=== PATIENT | female | born 1960 | race Caucasian/White ===

== ENCOUNTER 2017-09-29 16:48 | Inpatient (IN) | payer BC ==
[~2017-09-29] VITALS: Ht 172.7 cm; Wt 136.1 kg
[~2017-09-29 16:48] MED LIST: DARVOCET-N 1001 EACH PO; FLEXERIL PO; IBUPROFEN 800800 MG PO; MEDROLDOSEPACK PO; XANAX1 MG PO; [UNRECOGNIZED DRUG - REMARK]
[2017-09-29 17:02] VITALS: BP 148/71
[2017-09-29] MEDS ORDERED: AMBIEN 5 MG TABL5 M1 PO (17:04)
[2017-09-29] MEDS ORDERED: MAXALT MLT ODT10 M1 PO (17:04)
[2017-09-29] MEDS ORDERED: OTEZLA30 MG PO (17:04)
[2017-09-29] MEDS ORDERED: LYRICA 75 MG CA75 MG PO (17:04)
[2017-09-29] MEDS ORDERED: DIFLUCAN200 MG PO (17:04)
[2017-09-29] MEDS ORDERED: LAMICTAL100 MG PO (17:05)
[2017-09-29] MEDS ORDERED: GLUCOTROL5 MG PO (17:05)
[2017-09-29] MEDS ORDERED: VITAMIN D2000 UNIT PO (17:05)
[2017-09-29] MEDS ORDERED: CLONAZEPAM 0.50.5 M1 PO (17:05)
[2017-09-29 17:12] LABS: URINE BLOOD 3+ (Negative); URINE CLARITY CLOUDY; URINE COLOR YELLOW; URINE GLUCOSE-RANDOM NEGATIVE (Negative); URINE KETONES NEGATIVE (Negative); URINE LEUKOCYTES-REFLEX NEGATIVE (Negative); URINE NITRITE-REFLEX NEGATIVE (Negative); URINE PROTEIN 2+ (Negative); URINE SPECIFIC GRAVITY >= 1.030 (1.005-1.030)
[2017-09-29 17:14] LABS: ICTOTEST (BILI CONFIRMATORY) Negative (Negative); URINE BILIRUBIN 1+ (Negative)
[2017-09-29 17:15] LABS: MUCUS 0-3 Light strn/LPF (None Seen); SQUAMOUS >10 Many /LPF (0-3)
[2017-09-29 17:16] LABS: CRYSTALS None Seen /LPF (None Seen); URINE RBC >20 Many /HPF (0-2); URINE WBC-REFLEX 6-15 Few /HPF (0-5)
[2017-09-29 17:17] LABS: ABSOLUTE BASOPHILS 0.2 thou/uL (0.0-0.2); ABSOLUTE EOSINOPHILS 0.2 thou/uL (0.0-0.7); ABSOLUTE LYMPHOCYTES 2.7 thou/uL (0.8-5.3); ABSOLUTE NEUTROPHILS 12.2 thou/uL (1.6-8.1); BASOPHILS 1.4 %; EOSINOPHILS 1.1 %; HEMATOCRIT 42.9 % (37.0-47.0); HEMOGLOBIN 14.3 gm/dL (12.0-15.0); LYMPHOCYTES 16.5 %; MCH 27.9 pg (26.0-34.0); MCHC 33.4 g/dL (28.0-37.0); MCV 83.5 fL (80.0-100.0); MONOCYTES 5.9 %; MPV 8.9 fl. (7.2-11.1); NUCLEATED RBCS 0 /100WBC; PLATELET COUNT* 240 thou/uL (150-400); POLYS 75.1 %; RBC 5.14 mil/uL (4.20-5.00); RDW-CV 14.6 % (10.5-14.5); WBC 16.2 thou/uL (4.0-11.0)
[2017-09-29 17:17] LABS: HYALINE CASTS 0-3 Few /LPF (None Seen)
[2017-09-29 17:24] LABS: CALCIUM 9.4 mg/dL (8.5-10.1); CREATININE 0.9 mg/dL (0.6-1.3); POTASSIUM 4.1 mmol/L (3.5-5.1)
[2017-09-29 17:29] LABS: ALBUMIN 3.4 g/dL (3.4-5.0); TOTAL BILIRUBIN 0.4 mg/dL (<0.1-1.0); TOTAL PROTEIN 7.1 g/dL (6.4-8.2)
[2017-09-29 20:23] VITALS: BP 135/57
[2017-09-29 22:48] VITALS: BP 143/77
[2017-09-30] VITALS (7 sets, daily range): BP systolic 136–145; BP diastolic 72–91
[2017-10-01 03:42] VITALS: BP 104/56
[2017-10-01 08:30] VITALS: BP 125/62
--- NOTE | 2017-10-01 09:45 | EKG ---
[place] [address] ELECTROCARDIOGRAM REPORT Name: BOY LEVY Room: [address] ADM IN .R.#: [id number] Admission: 09/29/17 Attend Phys: Oniel Gallardo MD Discharge: Date of : 62 Report #: [id number] THIS REPORT FOR: //name// [facility] Test Date: 2017-09-30 Test Time: 12:24:10 Pat Name: BOY LEVY Department: Room: [address] Gender: F Access Services Representative: : 1960 Requested By: Eamon Crane Order Number: [id number] Trevon MD: Lobo Flores Measurements Intervals [place] Rate: 83 P: 30 MN: 165 QRS: 60 QRSD: 90 T: 49 QT: 394 QTc: 463 Interpretive Statements Sinus rhythm Low voltage, precordial leads Compared to ECG 10/11/2016 13:03:51 No significant changes Electronically Signed On 10-01-2017 9:45:16 CDT by Lobo Flores [email or web address] <ELECTRONICALLY SIGNED> By: Lobo Flores MD, [facility] 10/01/17 0945 1224 1224 Lobo Flores MD, [facility] /EPI
[2017-10-01] MEDS ORDERED: CEFUROXIME500 MG PO (09:59)
[2017-10-01] MEDS ORDERED: LEVSIN0.125 MG PO (10:00)
[2017-10-01 10:17] VITALS: BP 125/62
[2017-10-01 10:30] VITALS: BP 125/62
[2017-10-01 11:33] VITALS: BP 125/62
--- NOTE | 2017-10-03 14:08 | PATH ---
[facility] [address] [place] [address] PATHOLOGY RPT PROCEDURE Name: MINDA CARBONE Room: [address] IN M.R.#: [id number] Admission: 09/29/17 Date of : 62 Discharge: 10/01/17 Report #: [id number] Path Case #: [id number] [facility] Accession Number: [id number] . 01 Material submitted: . BLADDER BIOPSY . 01 Clinical history: . Right ureteral stone . 02 Diagnosis: BLADDER BIOPSY: - NON-INVASIVE PAPILLARY UROTHELIAL CARCINOMA, LOW GRADE. - CHRONIC CYSTITIS. SEE COMMENT. LBQ/10/02/2017 . 02 Comment: Minimal smooth muscle is present favored to represent muscularis mucosa. Reviewed with Dr. Lnae Yang who agrees with the diagnosis. (JUDIT/pradeep; 10/02/2017) . 02 Electronically signed: . Zaki Rai MD, Pathologist NPI- [id number] . 01 Gross description: . Received in formalin labeled "Minda Carbone, bladder biopsy," is a segment of saunders soft tissue weighing less than 1 g and measuring 0.4 cm in maximum dimension. The specimen is submitted entirely in cassette A1. ([facility]; 10/01/2017) XDC/XDC . 02 Pathologist provided ICD-10: C67.9 . 02 CPT . 543161 Performed at: [address], [place] [id number] MD Alonso Milan MD Phone: [phone] Performed at: 02 [facility] [address], [place], [place] [id number] MD Zaki Rai MD Phone: [phone]
[2017-10-07 17:13] LABS: STONE CA OXALATE DIHYDRATE 35 % (()); STONE CA OXALATE MONOHYDRATE 60 % (()); STONE COLOR Brown (()); STONE COMMENT Note: (()); STONE WEIGHT 47.9 mg (())
--- NOTE | 2017-10-21 13:18 | OP ---
[facility] [address] [place] [address] OPERATIVE REPORT Name: BOY LEVY Room: [address]R.#: [id number] Admission: 09/29/17 Attend Phys: Oniel Gallardo MD Discharge: 10/01/17 Date of : 62 Report #: [id number] THIS REPORT FOR: //name// CC: Oniel Anthony Salisbury DATE OF SERVICE: 09/30/2017 DATE OF PROCEDURE: 09/30/2017. PREOPERATIVE DIAGNOSIS: Right proximal ureteral calculus. POSTOPERATIVE DIAGNOSES: 1. Right distal ureteral calculus. 2. Bladder tumor. PROCEDURES PERFORMED: 1. Cystoscopy with right retrograde pyelogram. 2. Right ureteroscopy with laser lithotripsy. 3. Stone retrieval. 4. Right 6 x 26 double-J ureteral stent placement. 5. Bladder biopsy. SURGEON: Eamon Crane M.D. ANESTHESIA: General endotracheal. BRIEF HISTORY: The patient is a 57-year-old female with a history of nephrolithiasis, who presented to [facility] with acute onset right-sided flank pain. CT imaging demonstrated the presence of a 7 mm right proximal ureteral calculus. The patient was admitted to the hospital, but her pain control was suboptimal. After discussion of the available management options, the patient elected cystoscopy with right retrograde pyelogram, right ureteroscopy with laser lithotripsy, stone retrieval and right ureteral stent placement. The risks of the procedure including the risks of bleeding, infection, damage to surrounding structures, need for additional procedures and anesthetic risks were discussed with the patient and she wished to proceed. PROCEDURE IN DETAIL: The risks and benefits of the surgery were discussed with the patient and she wished to proceed. Informed consent was obtained and the patient was transferred to the operating room, where she was laid supine on the operating room table. After the induction of adequate general endotracheal anesthesia, the patient's legs were placed in a modified dorsal lithotomy position, taking care to pad all pressure points and avoid any hyperextension or hyperflexion of her joints. The patient's genitalia were prepped and draped in usual sterile fashion. The patient previously received [place] [address] OPERATIVE REPORT Name: MILDRED,BOY Demetrius Room: [address]#: [id number] Admission: 09/29/17 Attend Phys: Oniel Gallardo MD Discharge: 10/01/17 Date of : 62 Report #: [id number] timeout was then performed to ensure correct patient and procedure. At this time, a 22-Cypriot cystoscope sheath with a 30-degree lens was lubricated and advanced under direct vision and irrigation through the urethra and into the bladder. The cystoscope was disarticulated and the bladder was drained. Cystoscopy was then performed under direct vision and irrigation with both a 30-degree and 70-degree lens. The patient's ureteral orifices were found to be in their normal anatomic location. Systematic panendoscopy revealed a small papillary appearing bladder tumor at the base of the bladder, just superior to the trigone in the midline. There were otherwise no suspicious mucosal lesions. Given the presence of an obstructing stone, the decision was made to proceed with ureteroscopic management. An attempt was made at advancing a 5-Cypriot Pollack catheter into the right ureteral orifice, but the UO was somewhat atretic and as such, a wire was advanced through the Pollack catheter and into the ureter. Fluoroscopic imaging demonstrated the presence of a radiopacity in the right hemipelvis. With advancement of the wire, there was resistance there, consistent with movement of her stone from the right proximal ureter to the right distal ureter. Using the Pollack catheter as a scaffolding, the wire was able to be advanced beyond the stone until it was seen to coil within the right collecting system under fluoroscopy. The Pollack catheter was then advanced into the right distal ureter and the wire was removed. A right retrograde pyelogram was performed and contrast could be seen filling the distal ureter at a distance of approximately 1-2 cm, at which point, the radiopaque calculus was seen. Contrast did progress beyond the stone and filled a [id number]-glgddlfwia ectatic mid and proximal ureter. The wire was replaced through the Pollack catheter up into the right collecting system under fluoroscopy. The Pollack catheter and cystoscope were removed leaving the wire in place as a safety wire. At this time, a rigid ureteroscope was advanced under direct vision and pressure flow irrigation without difficulty into the distal ureter. The patient's stone was encountered. A 200-micron laser fiber was advanced through the ureteroscope and laser lithotripsy was performed on the calculus, fragmenting it into multiple smaller pieces. The stone fragments generated during the procedure were grasped and removed with a 0 tip nitinol basket. Once all basketable stone fragments have been removed from the distal ureter, the ureteroscope was advanced to the proximal ureter and was withdrawn. There were no additional basketable stone fragments identified. The patient was found to have a few small non-obstructing right renal stones and so the decision was made to try to attempt flexible ureteroscope advancement to the kidney for retrieval. A second wire was placed through the rigid ureteroscope and the rigid ureteroscope was removed. A flexible ureteroscope was then advanced over this working wire and an attempt was made at advancing it into the ureter. The flexible ureteroscope tip was not tapered and was relatively blunt. It would not advance into the ureter. Given the above, the decision was made to cease further attempts at retrieval of the renal calculi. The flexible ureteroscope was withdrawn and the Pollack catheter was advanced over the working wire into the ureter. The working wire [place] [address] OPERATIVE REPORT Name: BOY LEVY Room: [address]#: [id number] Admission: 09/29/17 Attend Phys: Oniel Gallardo MD Discharge: 10/01/17 Date of : 62 Report #: [id number] repeat pyelogram was performed. This demonstrated patency and integrity of the ureter and collecting system and delineated the collecting system for stent placement. A 6 x 26 double-J ureteral stent was then advanced over the safety wire and into position. The wire was withdrawn, deploying the stent. A good coil of the stent was identified within the right renal pelvis under fluoroscopy and a good coil of the stent was identified within the bladder under direct vision with the cystoscope. At this time, attention was paid to the small bladder tumor of the base of the bladder, just superior to the trigone in the midline. A flexible biopsy grasper was advanced through the cystoscope and the lesion was biopsied and removed in its entirety with one bite. This was passed off the table in a separate specimen container for pathologic analysis. The biopsy site was fulgurated with a Bugbee electrode to obtain hemostasis. The calculus fragments which had been dropped into the bladder were evacuated out through the cystoscope and were also passed off the table in a separate specimen container for stone analysis. The patient's bladder was copiously irrigated and the cystoscope was removed. The patient's urethra was anesthetized with 2% lidocaine jelly. She was returned to a supine position, awakened from anesthesia and transferred to the Postoperative Care Unit in stable condition. The patient tolerated the procedure well. COMPLICATIONS: None. ESTIMATED BLOOD LOSS: Minimal. INTRAVENOUS FLUIDS: Crystalloid. DRAINS: Right 6 x 26 double-J ureteral stent. SPECIMENS: 1. Right distal ureteral calculus fragments. 2. Bladder biopsy. FINDINGS: 1. Small papillary bladder tumor of the base of the bladder, just superior to the trigone in the midline, biopsied. 2. Right retrograde pyelogram demonstrating antegrade movement of her right proximal ureteral stone to the right distal ureter. 3. Right ureteroscopy demonstrating a right distal ureteral calculus, fragmented with laser lithotripsy and removed. 4. Inability to advance flexible ureteroscope to the kidney for retrieval of small non-[place] [address] OPERATIVE REPORT Name: BOY LEVY Room: [address] IN M.R.#: [id number] Admission: 09/29/17 Attend Phys: Oniel Gallardo MD Discharge: 10/01/17 Date of : 62 Report #: [id number] 5. Right 6 x 26 double-J ureteral stent in good position by fluoroscopy and direct vision. <ELECTRONICALLY SIGNED> By: Eamon Crane MD 10/21/17 1318 1406 1448Eamon Crane MD /nt
== END 2017-10-01 11:38 | disposition home or self-care (01) | DRG 854 ==
LOC: M.ERS 16:48 → M.3W 18:43 → M.TBA-ER 18:43 → M.3W 20:11
PROVIDERS: Nurse Practitioner Family; ADMIT Internal Medicine
DX: A41.9 Sepsis, unspecified organism (principal); N13.6 Pyonephrosis; Z68.42 Body mass index [BMI] 45.0-49.9, adult; C67.9 Malignant neoplasm of bladder, unspecified; N30.20 Other chronic cystitis without hematuria; F17.210 Nicotine dependence, cigarettes, uncomplicated; G43.909 Migraine, unspecified, not intractable, without status migrainosus; K21.9 Gastro-esophageal reflux disease without esophagitis; L40.9 Psoriasis, unspecified; E66.9 Obesity, unspecified; F41.9 Anxiety disorder, unspecified; F32.9 Major depressive disorder, single episode, unspecified; M79.7 Fibromyalgia; E11.9 Type 2 diabetes mellitus without complications; Z87.442 Personal history of urinary calculi; Z90.710 Acquired absence of both cervix and uterus; Z88.6 Allergy status to analgesic agent; Z88.1 Allergy status to other antibiotic agents; Z87.01 Personal history of pneumonia (recurrent); Z98.890 Other specified postprocedural states; Z79.2 Long term (current) use of antibiotics; Z79.899 Other long term (current) drug therapy